=== PATIENT | female | born 1995 | race Caucasian/White ===

== ENCOUNTER 2016-08-22 17:34 | Emergency (ER) | payer OTHER ==
[~2016-08-22] VITALS: Ht 167.6 cm; Wt 90.7 kg
[2016-08-22 17:57] VITALS: BP 133/80
--- NOTE | 2016-08-22 19:20 | NUR ---
PT IS 20/F BIB BOYFRIEND TO ED WITH C/O OF OCCIPITAL HEADACHE WITH DIZZINESS. PT STATES MED HX OF BIPOLAR AND DEPRESSION. DENIES N/V/D; SKIN IS PINK/WARM/DRY; AAOX4 WITH EVEN AND STEADY GAIT; LUNGS CLEAR BL; HR EVEN AND REGULAR; PT DENIES ANY FEVER, CP, SOB, OR COUGH AT THIS TIME; PATIENT STATES PAIN OF 8/10 AT THIS TIME; VSS; PATIENT POSITIONED FOR COMFORT; HOB ELEVATED; BEDRAILS UP X2; BED DOWN. ER MD MADE AWARE OF PT STATUS.
--- NOTE | 2016-08-22 19:27 | NUR ---
DR HUBER AT BEDSIDE EVALUATING PATIENT.
[2016-08-22] MEDS ORDERED: HYDROcodone/APAP 5/325 MG 1 TAB TAB PO ONE (19:30)
[2016-08-22] MEDS ORDERED: METHOCARBAMOL 500 MG TAB PO SCH (19:30)
[2016-08-22 20:31] VITALS: BP 122/79
--- NOTE | 2016-08-22 20:31 | NUR ---
Patient discharged with v/s stable. Written and verbal after care instructions given and explained. Patient alert, oriented and verbalized understanding of instructions. Ambulatory with steady gait. All questions addressed prior to discharge. ID band removed. Patient advised to follow up with PMD. Rx of ROBAXIN AND MOTRIN given. Patient educated on indication of medication including possible reaction and side effects. Opportunity to ask questions provided and answered.
== END 2016-08-22 20:31 | disposition home or self-care (01) ==
LOC: MED 17:34
DX: S16.1XXA Strain of muscle, fascia and tendon at neck level, initial encounter (principal); R03.0 Elevated blood-pressure reading, without diagnosis of hypertension; Z88.1 Allergy status to other antibiotic agents; X50.3XXA Overexertion from repetitive movements, initial encounter; X50.9XXA Other and unspecified overexertion or strenuous movements or postures, initial encounter; Y93.89 Activity, other specified; Y92.59 Other trade areas as the place of occurrence of the external cause; Y99.8 Other external cause status
CPT/HCPCS: 99283

== ENCOUNTER 2017-03-14 10:27 | Emergency (ER) | payer OTHER ==
[~2017-03-14] VITALS: Ht 165.1 cm; Wt 93.0 kg
[2017-03-14 10:30] VITALS: BP 131/77
--- NOTE | 2017-03-14 10:37 | NUR ---
Patient to bed 01.
--- NOTE | 2017-03-14 10:43 | NUR ---
21F BIB BOYFRIEND C/O RASH TO BL GROIN AREA, BURNING PAIN, NON-RADIATING, 10/10 X 2 WEEKS; DARK DISCOLORATION NOTED TO SITE AT THIS TIME, NO BLEEDING OR DRAINAGE NOTED TO SITE AT THIS TIME; PT STATES NO RECENT CHANGES IN SOAP, DETERGENT, OR NO EXPOSURE TO CHEMICALS AT THIS TIME; PT STATES " IT LOOKED LIKE A BRUISE INITIALLY, BUT WHITE STUFF STARTED COMING OUT YESTERDAY. YOU CAN'T SEE IT, BUT IT'S ON MY UNDERWEAR"; PT AA&OX4, PERRLA, BL LUNG SOUNDS CLEAR, RR EVEN/UNLABORED, SKIN IS WARM/DRY/INTACT AT THIS TIME; STEADY GAIT; PT RESTING IN BED WITH HOB ELEVATED AND IN LOWEST POSITION; POSITIONED FOR COMFORT; ER MD MADE AWARE OF STATUS. WILL CONTINUE TO MONITOR.
--- NOTE | 2017-03-14 11:30 | NUR ---
ALIRIO KNOWLES CHAPERONED ER MD DR. BLOOM FOR FEMALE PATIENT EXAM.
[2017-03-14 12:04] VITALS: BP 112/76
--- NOTE | 2017-03-14 12:04 | NUR ---
DPatient discharged with v/s stable. Written and verbal after care instructions given and explained. Patient alert, oriented and verbalized understanding of instructions. Carried with to car. All questions addressed prior to discharge. ID band removed. Patient advised to follow up with PMD. Rx of NYSTATIN CREAM given. Patient educated on indication of medication including possible reaction and side effects. Opportunity to ask questions provided and answered.
== END 2017-03-14 12:04 | disposition home or self-care (01) ==
LOC: MED 10:27
DX: R21 Rash and other nonspecific skin eruption (principal); Z88.0 Allergy status to penicillin; F12.90 Cannabis use, unspecified, uncomplicated
CPT/HCPCS: 99283